=== PATIENT | female | born 1960 | race Caucasian/White ===

== ENCOUNTER → 2022-01-24 10:38 | Outpatient (CLI) | payer BC, SELFPAY ==
[2022-01-24 18:24] LABS: Basophils % 0.9 % (0.1-2.0); Eosinophils # 0.1 K/mm3 (0.0-0.4); Eosinophils % 3.6 % (0.1-12.0); Hematocrit 43.5 % (37.0-47.0); Hemoglobin 13.8 g/dL (12.2-16.2); Lymphocytes # 1.4 K/mm3 (0.7-4.5); Lymphocytes % 34.5 % (10-50); Mean Corpuscular HGB Conc 31.7 g/dL (31.8-35.4); Mean Corpuscular Hemoglobin 29.7 pg (27.0-31.2); Mean Corpuscular Volume 93.7 fl (81-99); Mean Platelet Volume 9.8 fl (7.4-10.4); Monocytes # 0.3 K/mm3 (0.1-1.0); Monocytes % 7.2 % (1.7-9.3); Neutrophils # 2.2 K/mm3 (1.8-7.8); Neutrophils % 53.8 % (37.0-80.0); Platelet Count 252 K/mm3 (142-424); Red Blood Count 4.64 M/mm3 (4.20-5.40); Red Cell Distribution Width 13.1 % (11.5-17.5); White Blood Count 4.1 K/mm3 (4.8-10.8)
[2022-01-24 18:28] LABS: Chloride 103 mmol/L (98-107)
[2022-01-24 18:29] LABS: Potassium 4.5 mmoL/L (3.5-5.1); Sodium 140 mmol/L (136-145)
[2022-01-24 18:31] LABS: Alanine Aminotransferase 20 U/L (12-78); Albumin Level 4.2 g/dl (3.5-5.0); Albumin/Globulin Ratio 1.6 (1.1-1.8); Alkaline Phosphatase 80 U/L (38-126); Anion Gap 11.5 mEq/L (5-15); Aspartate Amino Transferase 27 U/L (14-36); Bilirubin,Total 0.4 mg/dl (0.2-1.3); Blood Urea Nitrogen 11 mg/dl (7-17); Carbon Dioxide 30 mmol/L (22.0-30.0); Cholesterol 191 mg/dl (140-200); Estimated Glomerular Filt Rate 64 ml/min (>60); GFR (African American) 77 ML/MIN (>60); Globulin 2.6 g/dL (1.3-3.2); Total Protein,Serum 6.8 g/dl (6.3-8.2); Triglycerides 109 mg/dl (30-150); VLDL Cholesterol 22 mg/dL (0-40)
[2022-01-24 18:32] LABS: Calcium 10.2 mg/dl (8.4-10.2); Chol/HDL Ratio 4.5 (1-3.5); Glucose 85 mg/dl (74-100); HDL Cholesterol 42 mg/dl (40-60)
[2022-01-24 18:52] LABS: Erythrocyte Sedimentation Rate 9 mm/hr (0-30)
[2022-01-24 19:13] LABS: Thyroid Stimulating Hormone 1.55 uIU/mL (0.465-4.68)
[2022-01-24 20:25] LABS: Vitamin B12 471 pg/mL (239-931)
[2022-01-24 20:52] LABS: Free T4 (Free Thyroxine) 1.05 ng/dl (0.78-2.19)
[2022-01-24 22:38] LABS: C-Reactive Protein 0.6 mg/L (0-4)
[2022-01-26 08:18] LABS: RA Latex Turbid. <10.0 IU/mL (<14.0); Thyroid Peroxidase Antibodies 472 IU/mL (0-34)
[2022-02-02 10:43] LABS: 1,25 Dihydroxy Vitamin D 50 pg/mL (.); 1,25-Dihydroxy, Vitamin D-2 <10 pg/mL (.); 1,25-Dihydroxy, Vitamin D-3 47 pg/mL (.)
[2022-02-17 23:17] LABS: Antinuclear Antibodies (ANA) Negative; Antinuclear Antibodies, IFA Positive
== END ==
PROVIDERS: PCP Family Medicine; Visit Provider Family Medicine
DX: E03.9 Hypothyroidism, unspecified (principal); M25.50 Pain in unspecified joint; R53.83 Other fatigue
CPT/HCPCS: 80053; 80061; 82607; 82652; 84439; 84443; 84550; 85025; 85651; 86038; 86140; 86225; 86235; 86376; 86431

== ENCOUNTER 2022-03-27 07:29 | Day surgery (SDC) | payer BC, SELFPAY ==
[2022-03-27 07:59] VITALS: BP 123/78; PULSE 71; RESP 18; TEMP 36.5; O2SAT 98
--- NOTE | 2022-03-27 08:24 | EXP.ANES.CKL ---
[facility] Disclaimer: The information contained in this section may have been updated after the patient was seen, as this information can be updated by other users. Medical History Acquired hypothyroidism Allergies Arthritis Bilateral tinnitus Chronic back pain Colon cancer screening Depression with anxiety Fatigue Hard of hearing Hypothyroid Lumbar disc disease Polyarthralgia Surgical History No significant past surgical history Family History Other Cancer Diabetes Hypertension Leukemia Stroke Social History Smoking Status: Never smoker alcohol intake: never substance use type: denies use current occupational status: retired Travel in the last 8 weeks: None marital status: [facility] Anesthesia Checklist Patient Identification Patient Identification: Verbal (Name & ) Structural Data Admitted From: Home Planned Operative Procedure/s: colonoscopy Consent for Planned Operative Procedure(s) Verified: Yes Airway Assessment C-Spine Mobility Assessed: Yes TMJ Mobility Assessed: Yes Dentition: Good Dentition Neurological Assessment Level of Consciousness: Awake, Alert and Appropriate Anesthesia Plan Anesthesia Risk discussed: Yes Anesthesia Plan: Verified ASA Class: II Anesthesia Type: MAC
[2022-03-27 08:55] VITALS: O2SAT 97
[2022-03-27 09:29] VITALS: BP 91/62; PULSE 78; RESP 15; TEMP 36.8; O2SAT 97
--- NOTE | 2022-03-27 09:31 | HMH.SCOPE ---
Procedure: Date: 03/27/22 Patient Date of :: 1960 Procedure Performed:: Colonoscopy Indications:: Remote history of colon polyps Performing Provider:: Alfonzo Zhong MD Referring Provider:: . Sedation:: Monitored anesthesia care Procedure:: After informed consent was obtained the patient was taken to the endoscopy suite. Sedation ensued after the patient was transferred to the left lateral decubitus position. Pulse, blood pressure, and oxygen saturation were monitored throughout the procedure. Digital rectal exam revealed no significant abnormality. The colonoscope was placed in position. The entire colon was evaluated. The colonoscope was carefully removed and the patient was transferred to recovery in stable condition. Please see findings and specimens below for detail. Findings:: Bowel preparation poor Scattered diverticulosis (mostly in sigmoid) Specimens:: None Recommendations:: Repeat colonoscopy in 6-12 months with extended bowel preparation Complications:: Limited visualization secondary to poor bowel preparation Estimated blood obtained (mL): 0
[2022-03-27 09:39] VITALS: BP 95/72; PULSE 72; RESP 16; O2SAT 100
[2022-03-27 09:49] VITALS: BP 96/74; PULSE 67; RESP 17; O2SAT 99
[2022-03-27 09:59] VITALS: BP 97/72; PULSE 68; RESP 18; O2SAT 100
== END 2022-03-27 10:05 | disposition home or self-care (01) ==
PROVIDERS: PCP Family Medicine; Visit Provider Surgery
PROC: 0DJD8ZZ Inspection of Lower Intestinal Tract, Via Natural or Artificial Opening Endoscopic (ICD-10-PCS; CPT 45378; principal; 2022-03-27 08:30)
DX: Z12.11 Encounter for screening for malignant neoplasm of colon (principal); Z86.010 Personal history of colon polyps; K57.30 Diverticulosis of large intestine without perforation or abscess without bleeding; Z79.899 Other long term (current) drug therapy
CPT/HCPCS: 45378

== ENCOUNTER → 2022-06-06 12:19 | Outpatient (CLI) | payer BC, SELFPAY ==
--- NOTE | 2022-06-06 12:24 | XR_ITS ---
FINAL REPORT CLINICAL HISTORY: left hip and knee pain FINDINGS: Left hip Three views were obtained. There is no acute fracture or dislocation. The joint spaces appear normal. No soft tissue abnormality is identified. IMPRESSION: No acute process. Reviewed, Interpreted and Dictated by Unruly Saldana MD Transcribed by Bri Painter Authenticated and [facility]
--- NOTE | 2022-06-06 12:24 | XR_ITS ---
FINAL REPORT CLINICAL HISTORY: left hip and knee pain FINDINGS: Left knee Three views were obtained. There is no acute fracture or dislocation. The joint spaces appear normal. No soft tissue abnormality is identified. IMPRESSION: No acute process. Reviewed, Interpreted and Dictated by Unruly Saldana MD Transcribed by Bri Painter Authenticated and [facility]
== END ==
PROVIDERS: PCP Family Medicine; Visit Provider Nurse Practitioner
DX: M25.552 Pain in left hip (principal); M25.562 Pain in left knee
CPT/HCPCS: 73502; 73562

== ENCOUNTER → 2022-06-11 10:33 | Outpatient (CLI) | payer BC, SELFPAY ==
--- NOTE | 2022-06-11 10:34 | MM_ITS ---
PROCEDURE INFORMATION: Exam: MG Bilateral Screening 3D Mammography Exam date and time: 06/11/2022 10:30 AM Age: 61 years old Clinical indication: Screening mammogram TECHNIQUE: Imaging protocol: Bilateral Screening tomosynthesis and 2D mammography including computer-aided detection (CAD) when performed. COMPARISON: No relevant prior studies available. FINDINGS: MAMMOGRAPHY: Breast composition: The breast is heterogeneously dense, which may obscure small masses. Mass: None. Architectural distortion: No new or suspicious architectural distortion. Calcifications: No new or suspicious calcifications are present Asymmetric density: No new or suspicious asymmetric density is present Skin thickening: None. Axillary adenopathy: None. IMPRESSION: No mammographic evidence of malignancy. Recommend annual screening mammography unless otherwise clinically indicated. ASSESSMENT: BI-RADS category 1: Negative
== END ==
PROVIDERS: PCP Family Medicine; Visit Provider Nurse Practitioner
DX: Z12.31 Encounter for screening mammogram for malignant neoplasm of breast (principal)
CPT/HCPCS: 77063; 77067

== ENCOUNTER 2022-06-18 10:00 | Outpatient (RCR) | payer BC, SELFPAY ==
--- NOTE | 2022-06-11 12:36 | HMH.PTOPEV ---
PT Outpatient Evaluation Rehab PT Outpatient Evaluation Start: 06/11/22 11:06 Freq: Status: Active Protocol: Document 06/11/22 11:06 AMALIA (Rec: 06/11/22 12:35 AMALIA [id number]) E-signed By Dafne Dickerson, PT Outpatient Therapy Subjective History Subjective History Pt presents to the PT clinic with reports of L hip and L knee pain. Pt states that her L knee feels like she has shooting pain to the inside of her L knee. Pt reports that she has had hip pain for a few years but her L knee started hurting 2 months. Pt reports she has been taking Meloxicam since 2007 for her L hip pain. Pt states that she has a history of low back pain as well. Pt reports that she has been seeing a chiropractor for her back pain for years . Pt states that she has been limited to standing for 30 minutes due to the onset of L hip/knee pain. Pt states that she feels a sharp/shooting pain into her L knee when she is going upstairs or when sitting on the couch with her legs crossed. Pt states that she feels an ache on the L side of her hip when she is sitting for awhile or when she is going up a set of stairs. Chief Complaint Pain,Stiff,Weakness Symptom Type Ache,Sharp,Burning,Numbness, Shooting Symptoms Relieved By Rest/Positioning,Heat,Ice,OTC Meds,Prescription Meds, Activity Symptoms Aggravated By Sitting,Standing,Bending/ Stooping,Physical Activity, Twisting,Walking,Lifting Prior Functional Limitations None,Squatting Current Functional Limitations Lifting,Housework,Driving, Sleeping,Standing,Sitting, Squatting,Recreation Activity, Walking,Stairs,Bending/ Stooping Symptom Description Constant but Variable Level of pain today (0-10) 6 Pain scale - at its best (0-10) 3 Pain
== END 2022-06-18 10:05 | disposition home or self-care (01) ==
LOC: PT 10:00
PROVIDERS: PCP Family Medicine; Visit Provider Nurse Practitioner
DX: M25.552 Pain in left hip (principal); M25.562 Pain in left knee
CPT/HCPCS: 97010; 97014; 97110; 97140; 97163; 97530; G0283

== ENCOUNTER → 2022-08-09 12:56 | Outpatient (CLI) | payer BC, SELFPAY ==
--- NOTE | 2022-08-09 12:56 | MR_ITS ---
FINAL REPORT CLINICAL HISTORY: Lt knee pain POSTERIOR LEFT KNEE PAIN GIVES OUT WHEN GOING UP AN INCLINE X 4 MONTH FINDINGS: Multiplanar MR imaging of the right knee was performed without contrast. The medial and lateral menisci are intact without evidence of meniscal tear. The anterior and posterior cruciate ligaments are intact. The medial collateral ligament and lateral ligamentous complex are intact. The patellar and quadriceps tendons are intact. There is no evidence of fracture. There is a chronic partial tear at the origin of the medial head of the gastrocnemius. 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 There is mild to moderate chondromalacia involving the posterior aspect of the medial femoral condyle. Small joint effusion is seen. The musculature is intact. Small popliteal cyst is identified. 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 Chondromalacia as above. Reviewed, Interpreted and Dictated by Aleksander Malone III, MD Transcribed by Bri Painter Authenticated and [facility]
== END ==
PROVIDERS: PCP Family Medicine; Visit Provider Orthopaedic Surgery
DX: M25.562 Pain in left knee (principal)
CPT/HCPCS: 73721

== ENCOUNTER → 2022-09-19 14:40 | Outpatient (CLI) | payer BC, SELFPAY | PROVIDERS: PCP Nurse Practitioner; Visit Provider Nurse Practitioner | DX: L60.0 Ingrowing nail (principal); B95.4 Other streptococcus as the cause of diseases classified elsewhere | CPT/HCPCS: 87070; 87077; 87186; 87205 ==